=== PATIENT | male | born 2000 ===

== ENCOUNTER 2020-08-23 20:55 | Emergency (ER) | payer OTHER ==
[~2020-08-23] VITALS: Ht 170.2 cm; Wt 72.6 kg
[2020-08-24] MEDS ORDERED: ZOFRAN8 MG PO (03:25)
[2020-08-24] MEDS ORDERED: BENADRYL25 MG PO (03:25)
== END 2020-08-24 03:43 | disposition home or self-care (01) ==
LOC: ER 20:55
DX: R11.2 Nausea with vomiting, unspecified (principal); R53.81 Other malaise; T40.7X4A Poisoning by cannabis (derivatives), undetermined, initial encounter; Y92.89 Other specified places as the place of occurrence of the external cause